=== PATIENT | male | born 1950 | race Caucasian/White ===

== ENCOUNTER 2016-10-18 18:08 | Inpatient (IN) | payer BC, MEDICARE ==
--- NOTE | ~2016-10-18 | DS ---
Discharge Summary [facility] [address] [place]. [address] NAME: KONG MARIO : 46 STATUS : DIS Adiel PAT#: [id number] AGE: 66 ADM/REG DATE : 10/18/16 MR#: [id number] REPORT SERV DATE: 10/21/16 DICTATED BY: GENEVIEVE TAVARES DATE: 10/20/16 REPORT STATUS : Draft TRANSCRIBED BY: MODL DATE: 10/20/16 ADMISSION DATE: 10/18/2016 DISCHARGE DATE: 10/20/2016 Mr. Mario is a 66-year-old male with a history of hypertension, diabetes type 2, CKD, AFib, coronary artery disease status post stent placement, who presented to the hospital with a complaint of left leg redness and swelling with pain and was subsequently diagnosed with left lower extremities cellulitis. For further details refer to H and P dictated by Dr. Apodaca on 10/19/2016. HOSPITAL COURSE: Upon presenting to the emergency room, the patient was admitted on the Hospitalist Service for 24-48 hour observation. The patient was started on IV antibiotics which responded appropriately to therapy. There was also concern of a left DVT. The patient had Doppler ultrasound of the left lower extremity which came back negative. Given his hemodynamic stability and given improvement of his symptoms on IV antibiotics, the patient is being transpositioned to p.o. antibiotics and will be discharged home. All other medical problems were also managed while in the hospital. Plan has been discussed with the patient who voices understanding and is agreeable with this plan. DISCHARGE DIAGNOSES: 1. Left lower extremity cellulitis. 2. Hypertension. 3. Diabetes type 2. 4. Acute kidney injury. 5. Atrial fibrillation. 6. Coronary artery disease. 7. Chronic kidney disease stage 3. 8. Hypokalemia. 9. Morbid obesity. DISCHARGE PHYSICAL EXAMINATION: VITAL SIGNS: Blood pressure 139/69 with a pulse of 59, respirations 18, saturating at 96% on room air. The patient has remained afebrile. GENERAL: The patient is sitting in chair, appears stated age, in no acute distress. HEENT: Normocephalic, atraumatic. Extraocular motors intact. Moist oral mucosa. Pupils round and reactive to light and accommodation. NECK: Trachea midline and symmetric. No thyromegaly noted. No JVD present. No nodes noted. CHEST: Nontender to palpation. CARDIOVASCULAR: Regular rate and rhythm. S1, S2. No murmurs, rubs or gallops. LUNGS: Clear to auscultation bilaterally. No added breath sounds. ABDOMEN: Positive bowel sounds. Obese. Nontender, nondistended. EXTREMITIES: Left lower extremity with decreasing area of erythema noted. Dorsalis pedis pulse is intact. No cyanosis. No clubbing. No Edema. NEURO: Alert and oriented x3. No focal deficits appreciated. DISCHARGE MEDICATIONS: The patient's home medications were all continued with the addition Discharge Summary [address] [address] NAME: KONG MARIO : 46 STATUS : DIS Adiel PAT#: [id number] AGE: 66 ADM/REG DATE : 10/18/16 MR#: [id number] REPORT SERV DATE: 10/21/16 DICTATED BY: GENEVIEVE TAVARES DATE: 10/20/16 REPORT STATUS : Draft TRANSCRIBED BY: NATALY DATE: 10/20/16 of p.o. antibiotics. Medications include vitamin C 1000 mg p.o. daily, aspirin 162 mg p.o. every evening, dronedarone 400 mg p.o. twice a day, ferrous sulfate 325 mg p.o. daily, furosemide 20 mg p.o. every morning, Eliquis 5 mg p.o. twice a day, Losartan 100 mg p.o. every morning, multivitamin 1 tab p.o. every morning, fish oil 1200 mg p.o. daily, Nexium 40 mg p.o. every morning, potassium chloride 10 mEq p.o. daily, pramipexole 0.5 mg p.o. twice a day, rosuvastatin 20 mg p.o. at bedtime, clindamycin 300 mg p.o. t.i.d. for 5 days IMAGING: Left lower extremity venous ultrasound. Impression: No evidence of DVT of left lower extremity. DISPOSITION: The patient will be discharged home. ACTIVITY: As tolerated. DIET: Diabetic and cardiac diet. Greater than 30 minutes was spent in discharge planning, dictating summary, medication reconciliation, writing prescriptions, coordinating care. OTF Genevieve Tavares MD / [phone]
--- NOTE | ~2016-10-18 | HP ---
History And Physical [place] [id number] [place]. [address] NAME: KONG TUCKER : 46 STATUS : ADM Adiel PAT#: [id number] AGE: 66 ADM/REG DATE : 10/18/16 MR#: [id number] REPORT SERV DATE: 10/19/16 DICTATED BY: SAMUEL LUTHER DATE: 10/18/16 REPORT STATUS : Draft TRANSCRIBED BY: MODL DATE: 10/18/16 DATE OF ADMISSION: 10/18/2016 CHIEF COMPLAINT: Left leg redness and swelling with pain. HISTORY OF PRESENT ILLNESS: This is a 66-year-old gentleman with history of hypertension, diabetes, coronary artery disease, AFib, presenting with a left lower extremity redness and pain. The patient reports that he really did not notice anything until last night and when he woke up this morning at 6 o'clock, he noticed that his left anterior herrera was red and warm to touch. It was also tender to touch and slightly swollen. The patient called his PCP, who was concerned about potential DVT as the patient has been off Eliquis for the past three days for a pending colonoscopy and referred him to the ER. Of note, the patient does not have a history of DVTs or PEs, the patient is on Eliquis for AFib. In the ER, the patient was found to be afebrile and hemodynamically stable. Initial lab evaluation was all very benign including benign electrolytes and normal CBC with normal white blood cell count. However, it was quite obvious that the patient was actually suffering from cellulitis more so than the DVT. Compared to the morning, the redness had extended rapidly and thus, Internal Medicine consultation was requested for admission of the patient for further evaluation and care. REVIEW OF SYSTEMS: The patient denies any fevers or chills. Also, 14-point review of systems reviewed and negative other than mentioned above. MEDICATIONS: 1. Mirapex 0.5 mg p.o. b.i.d. 2. Multaq 400 mg p.o. b.i.d. 3. Eliquis 5 mg p.o. b.i.d. 4. Lasix 20 mg p.o. q.a.m. 5. Klor-Con 10 mEq p.o. b.i.d. 6. Cozaar 100 mg p.o. q.a.m. 7. Metformin 500 mg three times daily with meals. 8. Crestor 20 mg p.o. at bedtime. 9. Nexium 40 mg p.o. q.a.m. 10.Aspirin 162 mg p.o. q.p.m. 11.Multivitamin one tablet p.o. q.a.m. 12.Vitamin C 1000 mg p.o. daily. 13.Ferrous sulfate 325 mg p.o. daily. 14.Fish oil 1200 mg p.o. daily. 15.Vitamin B12 zrqs-aqo-avufroc one tablet p.o. daily. 16.Vitamin D hmms-vbm-zxokttk one tablet p.o. daily. 17.Ultram 50 mg p.o. every four hours p.r.n. ALLERGIES: 1. IODINATED CONTRAST MEDIUM. History And Physical [address] [address] NAME: KONG TUCKER : 46 STATUS : ADM Adiel PAT#: [id number] AGE: 66 ADM/REG DATE : 10/18/16 MR#: [id number] REPORT SERV DATE: 10/19/16 DICTATED BY: SAMUEL LUTHER DATE: 10/18/16 REPORT STATUS : Draft TRANSCRIBED BY: NATALY DATE: 10/18/16 2. ADHESIVE TAPE. 3. LATEX. PAST MEDICAL HISTORY: 1. Diabetes. 2. Hypertension. 3. GERD. 4. Hyperlipidemia. 5. BPH. 6. Coronary artery disease. 7. AFib for which he is on Coumadin. 8. The patient also has a loop recorder. 9. The patient is apparently getting an endoscopy and colonoscopy tomorrow for an anemia, but here in the ER, the patient was found to be non-anemic. PAST SURGICAL HISTORY: 1. Prostate biopsy as well as prostatectomy. 2. Back surgery. 3. Cardiac stents. 4. Skin melanoma excisions. FAMILY HISTORY: 1. Colon cancer. 2. CVAs. SOCIAL HISTORY: The patient does not smoke or use any illicit drugs. The patient consumes alcohol every once in a while. The patient lives at home with his and he is a retired accountant controller and he used to work for the [employer] in the past. PHYSICAL EXAMINATION: VITAL SIGNS: Temperature 98.7, blood pressure 169/77, pulse 81, respiratory rate is 16, saturating 97% on 2 L of oxygen. GENERAL: The patient is alert and oriented x3 with no focal neurologic deficits. The patient is awake, does not appear to be in acute distress and he is cooperative. NECK: No JVD. No lymphadenopathy. Normal thyroid. CHEST: No midline sternotomy scar and no tenderness to palpation. LUNGS: Clear to auscultation bilaterally with normal respiratory effort on room air. CARDIOVASCULAR: Regular rate and rhythm with no murmurs, rubs, or gallops, and PMI is nondisplaced. ABDOMEN: Soft, nontender with active bowel sounds and no organomegaly. EXTREMITIES: The patient's left lower extremity namely the anterior chin is red and warm to touch as well as mildly tender. It is not all that much swollen from my exam. LABORATORY DATA: Sodium is 141, potassium 3.8, chloride 103, BUN 15, creatinine 1.56, glucose 104, calcium 8.4. LFTs are benign. White blood cell count is 8.0, hemoglobin 14.7, platelets 208. History And Physical [address] [address] NAME: KONG TUCKER : 46 STATUS : ADM Adiel PAT#: [id number] AGE: 66 ADM/REG DATE : 10/18/16 MR#: [id number] REPORT SERV DATE: 10/19/16 DICTATED BY: SAMUEL LUTHER DATE: 10/18/16 REPORT STATUS : Draft TRANSCRIBED BY: NATALY DATE: 10/18/16 ASSESSMENT: This is a 66-year-old gentleman with history of diabetes, hypertension, coronary artery disease, atrial fibrillation amongst many other medical conditions presenting with a left lower extremity cellulitis. 1. Left lower extremity cellulitis without sepsis. 2. Hypertension. 3. Diabetes type 2. 4. Chronic kidney disease. 5. Hyperlipidemia. 6. Chronic atrial fibrillation. 7. Coronary artery disease. PLAN: The plan is to admit the patient for observation overnight. The patient will be monitored under telemetry. The patient will be given IV Ancef and I will also check an ultrasound of the lower extremities just to make sure that he does not have a DVT. I will follow his labs. Check blood cultures and also check a procalcitonin level. I anticipate the patient will be just fine overnight and may be able to go home on p.o. antibiotics tomorrow. Standard DVT prophylaxis. The patient is full code at this time. YSC/MODL Samuel Luther MD / [id number] CC: MD Nellie Costa M.D. [place] A [place], D.O.
[~2016-10-18 18:08] MED LIST: ASA5GR PO; ASAB PO; BUSPAR10 PO; CARDCD240 PO; CARDURA8 MG PO; CIP5 PO; COZAAR100 MG PO; CRESTOR10 PO; DRONED400 PO; DSS PO; ELIQUIS 5 MG TAB5 MG PO; ERY-TAB250 MG PO; FISH OIL1200 MG PO; FISH-EPA1000 MG PO; FLONASE NAS; GLUCPH PO; HALF81 PO; IRON PO; KAPIDEX60 MG PO; KLOR-CON M1010 MEQ PO; L20 PO; LIBRAX PO; LIPITOR40 PO; LOP25 PO; METHOC500B PO; MIRAPEX5 PO; MULTIVITAMI1 PO; NEUR300 PO; NEXIUM40 PO; NIASPAN500 PO; NORCO1 TA1 PO; NORCO1 TAB PO; PCET PO; PHENADOZ25 MG RE; PROSCAR5 PO; TOPXL50 PO; ULTRAM50 PO; VITAMIN B-121000 MC1 SL; VITC500 PO; ZITH250 PO; ZOL50 PO
[2016-10-18 19:30] LABS: BASOPHILS 0.1 %; BASOPHILS ABSOLUTE 0.01 10/3/uL (0.0-0.16); EOSINOPHILS 1.4 %; EOSINOPHILS ABSOLUTE 0.11 10/3/uL (0.0-0.53); ER CBC TAT 0 Hrs 05 Mins; HEMOGLOBIN 14.7 g/dL (13.6-17.8); IMMATURE GRANULOCYTES 0.5 %; IMMATURE GRANULOCYTES ABSOLUTE 0.04 10/3/uL (0.0-0.11); LYMPHOCYTES 20.5 %; LYMPHOCYTES ABSOLUTE 1.63 10/3/uL (0.67-4.30); MEAN CORPUSCULAR HEMOGLOB 33.9 pg (26.0-34.0); MEAN CORPUSCULAR VOLUME 92.9 fL (80-100); MEAN PLATELET VOLUME 9.6 fL (9.2-13.0); MONOCYTES 11.8 %; MONOCYTES ABSOLUTE 0.94 10/3/uL (0.21-1.20); NEUTROPHILS 65.7 %; NEUTROPHILS ABSOLUTE 5.22 10/3/uL (2.02-8.40); PLATELET COUNT 208 10/3/uL (150-400); RBC DISTRIBUTION WIDTH 13.8 % (12.0-16.0); RED CELL COUNT 4.34 10/6/uL (4.7-6.1)
[2016-10-18 19:32] LABS: HEMATOCRIT 40.3 % (40.0-51.0); MANUAL DIFF NO %; MEAN CORPUS HGB CONC 36.5 g/dL (32.0-36.0)
[2016-10-18 19:50] LABS: A/G RATIO 1.2 (0.7-1.9); ALBUMIN 3.9 G/DL (3.5-5.0); ALKALINE PHOSPHATASE 73 U/L (45-117); BUN (BLOOD UREA NITROGEN) 15 MG/DL (6-23); CALCIUM, SERUM 8.4 MG/DL (8.5-10.4); CHLORIDE, SERUM 103 MMOL/L (96-112); CO2 (CARBON DIOXIDE) 29 MMOL/L (24-34); CREATININE 1.56 MG/DL (0.70-1.30); GFR AFRICAN AMERICAN 52 ML/MIN (>=60); GFR NON AFRICAN AMERICAN 45 ML/MIN (>=60); GLOBULIN 3.2 G/DL (2.5-4.1); GLUCOSE, SERUM 104 MG/DL (60-99); POTASSIUM, SERUM 3.8 MMOL/L (3.5-5.3); SGOT(AST) 28 U/L (5-40); SGPT(ALT) 57 U/L (5-65); SODIUM, SERUM 141 MMOL/L (135-148); TOTAL BILIRUBIN 2.2 MG/DL (0-1.2); TOTAL PROTEIN 7.1 G/DL (6.0-8.5)
[2016-10-18 19:52] LABS: LACTATE 1.3 MMOL/L (0.3-2.4)
[2016-10-18] MEDS ORDERED: DRONED400 PO (20:42)
[2016-10-18] MEDS ORDERED: MIRAPEX5 PO (20:42)
[2016-10-18] MEDS ORDERED: L20 PO (20:42)
[2016-10-18] MEDS ORDERED: ELIQUIS 5 MG TAB5 MG PO (20:42)
[2016-10-18] MEDS ORDERED: KLOR-CON 1010 MEQ PO (20:43)
[2016-10-18] MEDS ORDERED: COZAAR100 MG PO (20:43)
[2016-10-18] MEDS ORDERED: NEXIUM40 PO (20:44)
[2016-10-18] MEDS ORDERED: ASAB PO (20:44)
[2016-10-18] MEDS ORDERED: CRESTOR20 MG PO (20:44)
[2016-10-18] MEDS ORDERED: GLUCPH PO (20:44)
[2016-10-18] MEDS ORDERED: MULTIVIT/MIN PO (20:45)
[2016-10-18] MEDS ORDERED: VITC500 PO (20:45)
[2016-10-18] MEDS ORDERED: FERROUS SULF325 M1 PO (20:45)
[2016-10-18] MEDS ORDERED: VITAMIN B-12 OTC PO (20:46)
[2016-10-18] MEDS ORDERED: FISH OIL1200 MG PO (20:46)
[2016-10-18] MEDS ORDERED: VITAMIN D OTC PO (20:47)
[2016-10-18] MEDS ORDERED: ULTRAM50 PO (20:49)
[2016-10-19 06:36] LABS: BASOPHILS 0.1 %; BASOPHILS ABSOLUTE 0.01 10/3/uL (0.0-0.16); EOSINOPHILS 1.6 %; EOSINOPHILS ABSOLUTE 0.11 10/3/uL (0.0-0.53); HEMOGLOBIN 12.7 g/dL (13.6-17.8); IMMATURE GRANULOCYTES 0.6 %; IMMATURE GRANULOCYTES ABSOLUTE 0.04 10/3/uL (0.0-0.11); LYMPHOCYTES 18.3 %; LYMPHOCYTES ABSOLUTE 1.29 10/3/uL (0.67-4.30); MEAN CORPUS HGB CONC 35.4 g/dL (32.0-36.0); MEAN CORPUSCULAR HEMOGLOB 32.1 pg (26.0-34.0); MEAN CORPUSCULAR VOLUME 90.7 fL (80-100); MEAN PLATELET VOLUME 9.9 fL (9.2-13.0); MONOCYTES 19.3 %; MONOCYTES ABSOLUTE 1.36 10/3/uL (0.21-1.20); NEUTROPHILS 60.1 %; NEUTROPHILS ABSOLUTE 4.25 10/3/uL (2.02-8.40); PLATELET COUNT 188 10/3/uL (150-400); RBC DISTRIBUTION WIDTH 14.3 % (12.0-16.0); RED CELL COUNT 3.96 10/6/uL (4.7-6.1); WHITE BLOOD CELLS 7.1 10/3/uL (4.5-10.5)
[2016-10-19 06:44] LABS: HEMATOCRIT 35.9 % (40.0-51.0); MANUAL DIFF NO %
[2016-10-19 06:50] LABS: BUN (BLOOD UREA NITROGEN) 15 MG/DL (6-23); CALCIUM, SERUM 7.9 MG/DL (8.5-10.4); CHLORIDE, SERUM 104 MMOL/L (96-112); CO2 (CARBON DIOXIDE) 28 MMOL/L (24-34); CREATININE 1.45 MG/DL (0.70-1.30); GFR AFRICAN AMERICAN 57 ML/MIN (>=60); GFR NON AFRICAN AMERICAN 49 ML/MIN (>=60); GLUCOSE, SERUM 110 MG/DL (60-99); POTASSIUM, SERUM 3.4 MMOL/L (3.5-5.3); SODIUM, SERUM 141 MMOL/L (135-148)
[2016-10-19 07:30] LABS: PROCALCITONIN <0.05 ng/mL (<0.5)
[2016-10-20 06:27] LABS: BASOPHILS 0.2 %; BASOPHILS ABSOLUTE 0.01 10/3/uL (0.0-0.16); EOSINOPHILS 2.4 %; EOSINOPHILS ABSOLUTE 0.14 10/3/uL (0.0-0.53); HEMATOCRIT 37.7 % (40.0-51.0); HEMOGLOBIN 13.5 g/dL (13.6-17.8); IMMATURE GRANULOCYTES 0.5 %; IMMATURE GRANULOCYTES ABSOLUTE 0.03 10/3/uL (0.0-0.11); LYMPHOCYTES 22.3 %; LYMPHOCYTES ABSOLUTE 1.29 10/3/uL (0.67-4.30); MEAN CORPUS HGB CONC 35.8 g/dL (32.0-36.0); MEAN CORPUSCULAR HEMOGLOB 33.5 pg (26.0-34.0); MEAN PLATELET VOLUME 9.8 fL (9.2-13.0); MONOCYTES 14.5 %; MONOCYTES ABSOLUTE 0.84 10/3/uL (0.21-1.20); NEUTROPHILS 60.1 %; NEUTROPHILS ABSOLUTE 3.47 10/3/uL (2.02-8.40); PLATELET COUNT 185 10/3/uL (150-400); RBC DISTRIBUTION WIDTH 13.9 % (12.0-16.0); RED CELL COUNT 4.03 10/6/uL (4.7-6.1); WHITE BLOOD CELLS 5.8 10/3/uL (4.5-10.5)
[2016-10-20 06:31] LABS: MANUAL DIFF NO %; MEAN CORPUSCULAR VOLUME 93.5 fL (80-100)
[2016-10-20 06:43] LABS: A/G RATIO 1.1 (0.7-1.9); ALBUMIN 3.3 G/DL (3.5-5.0); ALKALINE PHOSPHATASE 63 U/L (45-117); BUN (BLOOD UREA NITROGEN) 15 MG/DL (6-23); CALCIUM, SERUM 7.9 MG/DL (8.5-10.4); CHLORIDE, SERUM 105 MMOL/L (96-112); CO2 (CARBON DIOXIDE) 25 MMOL/L (24-34); CREATININE 1.48 MG/DL (0.70-1.30); GFR AFRICAN AMERICAN 56 ML/MIN (>=60); GFR NON AFRICAN AMERICAN 48 ML/MIN (>=60); POTASSIUM, SERUM 3.6 MMOL/L (3.5-5.3); SGOT(AST) 24 U/L (5-40); SGPT(ALT) 41 U/L (5-65); SODIUM, SERUM 142 MMOL/L (135-148); TOTAL PROTEIN 6.3 G/DL (6.0-8.5)
[2016-10-20 06:44] LABS: GLUCOSE, SERUM 151 MG/DL (60-99); TOTAL BILIRUBIN 1.5 MG/DL (0-1.2)
[2016-10-20] MEDS ORDERED: CLEOCIN300 MG PO (11:36)
[2016-11-09] MEDS ORDERED: VITAMIN B-122500 MCG SL (17:51)
[2016-11-09] MEDS ORDERED: SUPER B COMPLEX PO (17:52)
[2016-11-09] MEDS ORDERED: GLUCPH PO (18:27)
== END 2016-10-20 14:41 | disposition home or self-care (01) | DRG 603 ==
LOC: ER 18:08 → 2SO 23:04
PROVIDERS: Hospitalist; Internal Medicine; Nurse Practitioner
DX: L03.116 Cellulitis of left lower limb (principal); N17.9 Acute kidney failure, unspecified; Z68.41 Body mass index [BMI] 40.0-44.9, adult; I48.0 Paroxysmal atrial fibrillation; E11.9 Type 2 diabetes mellitus without complications; D64.9 Anemia, unspecified; I12.9 Hypertensive chronic kidney disease with stage 1 through stage 4 chronic kidney disease, or unspecified chronic kidney disease; E87.6 Hypokalemia; I25.10 Atherosclerotic heart disease of native coronary artery without angina pectoris; N18.3 Chronic kidney disease, stage 3 (moderate); E66.01 Morbid (severe) obesity due to excess calories; N40.0 Benign prostatic hyperplasia without lower urinary tract symptoms; K21.9 Gastro-esophageal reflux disease without esophagitis; Z91.041 Radiographic dye allergy status; Z91.040 Latex allergy status; Z91.048 Other nonmedicinal substance allergy status; Z79.01 Long term (current) use of anticoagulants; Z98.890 Other specified postprocedural states; Z95.5 Presence of coronary angioplasty implant and graft; Z85.820 Personal history of malignant melanoma of skin; Z82.3 Family history of stroke; Z80.0 Family history of malignant neoplasm of digestive organs
CPT/HCPCS: 80048; 80053; 82962; 83605; 84145; 85025; 87040; 93971; 96365; 96372; 96375; 96376; 99284; A9270-GY; G0378; J0690; J3370

== ENCOUNTER 2016-11-23 06:02 | Day surgery (SDC) | payer BC, MEDICARE ==
--- NOTE | ~2016-11-23 | EGD ---
EGD REPORT [facility] [address] [place] [address] NAME: ERMIAS MARIO : 46 STATUS : [facility]#: [id number] AGE: 66 ADM/REG DATE : 11/23/16 MR#: [id number] REPORT SERV DATE: 12/11/16 DICTATED BY: ROSA CORONEL DATE: 12/11/16 REPORT STATUS : Draft [facility]ANSCRIBED BY: [facility] DATE: 12/11/16 Endoscopy Center Patient Name: Ermias Mario Date of : 1950 Attending MD: ROSA CORONEL, Procedure Date No Time: 11/23/2016 Procedure: Colonoscopy Indications: Change in bowel habits, Constipation Referring MD: MYLA MEEKS Medicines: Propofol per Anesthesia Complications: No immediate complications. Estimated blood loss: None. Procedure: Pre-Anesthesia Assessment: - ASA Grade Assessment: III - A patient with severe systemic disease. After I obtained informed consent, the scope was passed under direct vision. Throughout the procedure, the patient's blood pressure, pulse, and oxygen saturations were monitored continuously. The CF [id number] was introduced through the anus and advanced to the cecum, identified by appendiceal orifice and ileocecal valve. The colonoscopy was performed with ease. The patient tolerated the procedure well. The quality of the bowel preparation was good. Findings: The perianal exam was abnormal. Findings include skin tags. Three polyps were found in the descending colon (x1) and at the appendiceal orifice (x2). The polyps were 3 mm in size. These polyps were removed with a cold biopsy forceps. Resection and retrieval were complete. Estimated blood loss: none. Internal hemorrhoids were found during retroflexion and were small. Multiple small-mouthed diverticula were found in the sigmoid colon. Impression: - Perianal skin tags found on perianal exam. - Three 3 mm polyps in the descending colon and at the appendiceal orifice. Resected and retrieved. - Internal hemorrhoids. - Diverticulosis in the sigmoid colon. Recommendation: - Patient has a contact number available for emergencies. The signs and symptoms of potential delayed complications were discussed with the patient. Return to normal activities tomorrow. Written discharge instructions were provided to the patient. - Full liquids today, soft diet tomorrow, and resume EGD REPORT [address] [address] NAME: ERMIAS MARIO : 46 STATUS : [facility] PAT#: [id number] AGE: 66 ADM/REG DATE : 11/23/16 MR#: [id number] REPORT SERV DATE: 12/11/16 DICTATED BY: ROSA CORONEL DATE: 12/11/16 REPORT STATUS : Draft TRANSCRIBED BY: [employer] [facility] DATE: 12/11/16 regular diet the day after tomorrow (bc of esophageal dilation). - High fiber diet. - Discharge patient to home (with escort). - Continue present medications. - Await pathology results. - Repeat colonoscopy in 5 years for surveillance. - Return to GI clinic in 4 weeks. Procedure Code(s): --- Professional --- 56150, Colonoscopy, flexible, proximal to splenic flexure; with biopsy, single or multiple Diagnosis Code(s): --- Professional --- K64.4, Residual hemorrhoidal skin tags D12.4, Benign neoplasm of descending colon D12.1, Benign neoplasm of appendix K64.8, Other hemorrhoids K57.30, Diverticulosis of large intestine without perforation or abscess without bleeding R19.4, Change in bowel habit K59.00, Constipation, unspecified CPT copyright 2013 [employer]. All rights reserved. The codes documented in this report are preliminary and upon medical coder review may be revised to meet current compliance requirements. ROSA CORONEL, 11/23/2016 8:03 AM This report has been signed electronically. Number of Addenda: 0 Note Initiated On: 11/23/2016 7:00 AM Scope Withdrawal Time 0 hours 11 minutes 10 seconds [address] [id number]
--- NOTE | ~2016-11-23 | EGD ---
EGD REPORT [facility] [address] [address] NAME: KONG TUCKER : 46 STATUS : [facility] PAT#: [id number] AGE: 66 ADM/REG DATE : 11/23/16 MR#: [id number] REPORT SERV DATE: 12/11/16 DICTATED BY: ROSA CORONEL DATE: 12/11/16 REPORT STATUS : Draft TRANSCRIBED BY: [employer] DATE: 12/11/16 THIS EXAM WAS SENT IN ERROR
--- NOTE | ~2016-11-23 | EGD ---
EGD REPORT [address] [place] [address] NAME: ERMIAS MARIO : 46 STATUS : [facility]#: [id number] AGE: 66 ADM/REG DATE : 11/23/16 MR#: [id number] REPORT SERV DATE: 12/11/16 DICTATED BY: ROSA CORONEL DATE: 12/11/16 REPORT STATUS : Draft [facility]ANSCRIBED BY: [facility] DATE: 12/11/16 Endoscopy Center Patient Name: Ermias Mario Date of : 1950 Attending MD: ROSA CORONEL, Procedure Date No Time: 11/23/2016 Procedure: Upper GI endoscopy Indications: Dysphagia Referring MD: MYLA MEEKS Medicines: Propofol per Anesthesia Complications: No immediate complications. Estimated blood loss: Minimal. Procedure: Pre-Anesthesia Assessment: - ASA Grade Assessment: III - A patient with severe systemic disease. After obtaining informed consent, the endoscope was passed under direct vision. Throughout the procedure, the patient's blood pressure, pulse, and oxygen saturations were monitored continuously. The GIF [id number] was introduced through the mouth, and advanced to the second part of duodenum. The upper GI endoscopy was accomplished with ease. The patient tolerated the procedure well. Findings: A small hiatus hernia was present. The Z-line was found 45 cm from the incisors. A guidewire was placed and the scope was withdrawn. Dilation was performed in the esophagus with a Savary dilator with mild resistance at 60 Fr. Estimated blood loss was minimal and post-dilation appearances were satisfactory with scant heme. Striped mildly erythematous mucosa was found in the gastric antrum. Biopsies were taken with a cold forceps for Helicobacter pylori testing. Estimated blood loss: none. A single 4 mm sessile polyp was found in the gastric antrum. This was biopsied with a cold forceps for histology. Estimated blood loss: none. The duodenal bulb and 2nd part of the duodenum were normal. Impression: - Hiatus hernia. - Z-line 45 cm from the incisors. - Erythematous mucosa in the antrum. Biopsied. - A single gastric polyp. Biopsied. - Normal duodenal bulb and 2nd part of the duodenum. - Dilation attempted in the esophagus. Successful. EGD REPORT [address] [place]. [address] NAME: ERMIAS MARIO : 46 STATUS : [facility] PAT#: [id number] AGE: 66 ADM/REG DATE : 11/23/16 MR#: [id number] REPORT SERV DATE: 12/11/16 DICTATED BY: ROSA CORONEL DATE: 12/11/16 REPORT STATUS : Draft TRANSCRIBED BY: [employer] DATE: 12/11/16 Recommendation: - Patient has a contact number available for emergencies. The signs and symptoms of potential delayed complications were discussed with the patient. Return to normal activities tomorrow. Written discharge instructions were provided to the patient. - Full liquids today, soft diet tomorrow, and resume regular diet the day after tomorrow. - Discharge patient to home (with escort). - Continue present medications. - Await pathology results. - Return to GI clinic in 4 weeks. Procedure Code(s): --- Professional --- 53253, Esophagogastroduodenoscopy, flexible, transoral; with insertion of guide wire followed by passage of dilator(s) through esophagus over guide wire 94266, Esophagogastroduodenoscopy, flexible, transoral; with biopsy, single or multiple Diagnosis Code(s): --- Professional --- K44.9, Diaphragmatic hernia without obstruction or gangrene K31.9, Disease of stomach and duodenum, unspecified K31.7, Polyp of stomach and duodenum R13.10, Dysphagia, unspecified CPT copyright 2013 [employer]. All rights reserved. The codes documented in this report are preliminary and upon acid bath mixer review may be revised to meet current compliance requirements. ROSA CORONEL, 11/23/2016 7:38 AM This report has been signed electronically. Number of Addenda: 0 Note Initiated On: 11/23/2016 7:03 AM Scope Withdrawal Time 0 hours 0 minutes 0 seconds [address] [place] [address]
--- NOTE | ~2016-11-23 | EGD ---
EGD REPORT [facility] [address] [place] [address] NAME: ERMIAS MARIO : 46 STATUS : [facility]#: [id number] AGE: 66 ADM/REG DATE : 11/23/16 MR#: [id number] REPORT SERV DATE: 12/11/16 DICTATED BY: ROSA CORONEL DATE: 12/11/16 REPORT STATUS : Draft TRANSCRIBED BY: [facility] DATE: 12/11/16 Endoscopy Center Patient Name: Ermias Mario Date of : 1950 Attending MD: ROSA CORONEL, Procedure Date No Time: 11/23/2016 Procedure: Colonoscopy Indications: Change in bowel habits, Constipation Referring MD: MYLA MEEKS Medicines: Propofol per Anesthesia Complications: No immediate complications. Estimated blood loss: None. Procedure: Pre-Anesthesia Assessment: - ASA Grade Assessment: III - A patient with severe systemic disease. After I obtained informed consent, the scope was passed under direct vision. Throughout the procedure, the patient's blood pressure, pulse, and oxygen saturations were monitored continuously. The CF [id number] was introduced through the anus and advanced to the cecum, identified by appendiceal orifice and ileocecal valve. The colonoscopy was performed with ease. The patient tolerated the procedure well. The quality of the bowel preparation was good. Findings: The perianal exam was abnormal. Findings include skin tags. Three polyps were found in the descending colon (x1) and at the appendiceal orifice (x2). The polyps were 3 mm in size. These polyps were removed with a cold biopsy forceps. Resection and retrieval were complete. Estimated blood loss: none. Internal hemorrhoids were found during retroflexion and were small. Multiple small-mouthed diverticula were found in the sigmoid colon. Impression: - Perianal skin tags found on perianal exam. - Three 3 mm polyps in the descending colon and at the appendiceal orifice. Resected and retrieved. - Internal hemorrhoids. - Diverticulosis in the sigmoid colon. Recommendation: - Patient has a contact number available for emergencies. The signs and symptoms of potential delayed complications were discussed with the patient. Return to normal activities tomorrow. Written discharge instructions were provided to the patient. - Full liquids today, soft diet tomorrow, and resume EGD REPORT [address] [address] NAME: ERMIAS MARIO : 46 STATUS : [facility] PAT#: [id number] AGE: 66 ADM/REG DATE : 11/23/16 MR#: [id number] REPORT SERV DATE: 12/11/16 DICTATED BY: ROSA CORONEL DATE: 12/11/16 REPORT STATUS : Draft TRANSCRIBED BY: [employer] DATE: 12/11/16 regular diet the day after tomorrow (bc of esophageal dilation). - High fiber diet. - Discharge patient to home (with escort). - Continue present medications. - Await pathology results. - Repeat colonoscopy in 5 years for surveillance. - Return to GI clinic in 4 weeks. Procedure Code(s): --- Professional --- 18632, Colonoscopy, flexible, proximal to splenic flexure; with biopsy, single or multiple Diagnosis Code(s): --- Professional --- K64.4, Residual hemorrhoidal skin tags D12.4, Benign neoplasm of descending colon D12.1, Benign neoplasm of appendix K64.8, Other hemorrhoids K57.30, Diverticulosis of large intestine without perforation or abscess without bleeding R19.4, Change in bowel habit K59.00, Constipation, unspecified CPT copyright 2013 [place] [employer]. All rights reserved. The codes documented in this report are preliminary and upon distribution field engineer review may be revised to meet current compliance requirements. ROSA CORONEL, 11/23/2016 8:03 AM This report has been signed electronically. Number of Addenda: 0 Note Initiated On: 11/23/2016 7:00 AM Scope Withdrawal Time 0 hours 11 minutes 10 seconds [address] [id number]
--- NOTE | ~2016-11-23 | EGD ---
EGD REPORT [facility] [address] [place] [address] NAME: ERMIAS MARIO : [birth year] STATUS : [facility]#: [id number] AGE: 66 ADM/REG DATE : 11/23/16 MR#: [id number] REPORT SERV DATE: 12/11/16 DICTATED BY: ROSA CORONEL DATE: 12/11/16 REPORT STATUS : Draft [facility] DATE: 12/11/16 Endoscopy Center Patient Name: Ermias Mario Date of : 1950 Attending MD: ROSA CORONEL, Procedure Date No Time: 11/23/2016 Procedure: Upper GI endoscopy Indications: Dysphagia Referring MD: MYLA MEEKS Medicines: Propofol per Anesthesia Complications: No immediate complications. Estimated blood loss: Minimal. Procedure: Pre-Anesthesia Assessment: - ASA Grade Assessment: III - A patient with severe systemic disease. After obtaining informed consent, the endoscope was passed under direct vision. Throughout the procedure, the patient's blood pressure, pulse, and oxygen saturations were monitored continuously. The GIF [id number] was introduced through the mouth, and advanced to the second part of duodenum. The upper GI endoscopy was accomplished with ease. The patient tolerated the procedure well. Findings: A small hiatus hernia was present. The Z-line was found 45 cm from the incisors. A guidewire was placed and the scope was withdrawn. Dilation was performed in the esophagus with a Savary dilator with mild resistance at 60 Fr. Estimated blood loss was minimal and post-dilation appearances were satisfactory with scant heme. Striped mildly erythematous mucosa was found in the gastric antrum. Biopsies were taken with a cold forceps for Helicobacter pylori testing. Estimated blood loss: none. A single 4 mm sessile polyp was found in the gastric antrum. This was biopsied with a cold forceps for histology. Estimated blood loss: none. The duodenal bulb and 2nd part of the duodenum were normal. Impression: - Hiatus hernia. - Z-line 45 cm from the incisors. - Erythematous mucosa in the antrum. Biopsied. - A single gastric polyp. Biopsied. - Normal duodenal bulb and 2nd part of the duodenum. - Dilation attempted in the esophagus. Successful. EGD REPORT [address] [place]. [address] NAME: ERMIAS MARIO : [birth year] STATUS : [facility] PAT#: [id number] AGE: 66 ADM/REG DATE : 11/23/16 MR#: [id number] REPORT SERV DATE: 12/11/16 DICTATED BY: ROSA CORONEL DATE: 12/11/16 REPORT STATUS : Draft TRANSCRIBED BY: [employer] DATE: 12/11/16 Recommendation: - Patient has a contact number available for emergencies. The signs and symptoms of potential delayed complications were discussed with the patient. Return to normal activities tomorrow. Written discharge instructions were provided to the patient. - Full liquids today, soft diet tomorrow, and resume regular diet the day after tomorrow. - Discharge patient to home (with escort). - Continue present medications. - Await pathology results. - Return to GI clinic in 4 weeks. Procedure Code(s): --- Professional --- 84921, Esophagogastroduodenoscopy, flexible, transoral; with insertion of guide wire followed by passage of dilator(s) through esophagus over guide wire 95526, Esophagogastroduodenoscopy, flexible, transoral; with biopsy, single or multiple Diagnosis Code(s): --- Professional --- K44.9, Diaphragmatic hernia without obstruction or gangrene K31.9, Disease of stomach and duodenum, unspecified K31.7, Polyp of stomach and duodenum R13.10, Dysphagia, unspecified CPT copyright 2013 [employer]. All rights reserved. The codes documented in this report are preliminary and upon tree killer review may be revised to meet current compliance requirements. ROSA CORONEL, 11/23/2016 7:38 AM This report has been signed electronically. Number of Addenda: 0 Note Initiated On: 11/23/2016 7:03 AM Scope Withdrawal Time 0 hours 0 minutes 0 seconds [address] [place] [address]
[~2016-11-23 06:02] MED LIST changes: +CLEOCIN300 MG PO; +CRESTOR20 MG PO; +FERROUS SULF325 M1 PO; +KLOR-CON 1010 MEQ PO; +MULTIVIT/MIN PO; +SUPER B COMPLEX PO; +VITAMIN B-12 OTC PO; +VITAMIN B-122500 MCG SL; +VITAMIN D OTC PO
== END 2016-11-23 23:59 | disposition home or self-care (01) ==
LOC: DMU 06:02
PROVIDERS: Internal Medicine Gastroenterology
PROC: 0D758ZZ Dilation of Esophagus, Via Natural or Artificial Opening Endoscopic (ICD-10-PCS; 2016-11-23)
PROC: 0DB68ZX Excision of Stomach, Via Natural or Artificial Opening Endoscopic, Diagnostic (ICD-10-PCS; 2016-11-23)
PROC: 0DBM8ZZ Excision of Descending Colon, Via Natural or Artificial Opening Endoscopic (ICD-10-PCS; principal; 2016-11-23 07:30)
PROC: 0DBE8ZZ Excision of Large Intestine, Via Natural or Artificial Opening Endoscopic (ICD-10-PCS; 2016-11-23 07:30)
DX: D12.4 Benign neoplasm of descending colon (principal); K31.89 Other diseases of stomach and duodenum; K64.8 Other hemorrhoids; K57.30 Diverticulosis of large intestine without perforation or abscess without bleeding; K44.9 Diaphragmatic hernia without obstruction or gangrene; I48.91 Unspecified atrial fibrillation; G47.33 Obstructive sleep apnea (adult) (pediatric); N18.9 Chronic kidney disease, unspecified; Z91.041 Radiographic dye allergy status; Z91.09 Other allergy status, other than to drugs and biological substances; Z79.84 Long term (current) use of oral hypoglycemic drugs; Z79.01 Long term (current) use of anticoagulants; Z79.82 Long term (current) use of aspirin; Z79.899 Other long term (current) drug therapy
CPT/HCPCS: 82962; 88305